=== PATIENT | female | born 1995 | race Caucasian/White ===

== ENCOUNTER 2017-12-29 15:31 | Emergency (ER) | payer BC, OTHER ==
[~2017-12-29] VITALS: Ht 149.9 cm; Wt 47.6 kg
[~2017-12-29 15:31] MED LIST: Amoxicillin500 MG PO; Bactrim Ds Tab1 EACH PO; HYOS.125 SL; IBUP800 PO; Macrodantin100 MG PO; Norco 5-325 Ta1 EACH PO; Zofran Odt4 MG SL
[2017-12-29 16:25] LABS: Calcium, Ionized (POC) 1.19 mmol/L (1.10-1.46); Chloride (POC) 102 mmol/L (98-108); Creatinine (POC) 0.7 mg/dL (0.6-1.0); Glucose (ISTAT POC) 82 mg/dL (70-99); Hemoglobin (POC) 11.9 g/dL (12.0-16.0); Potassium (POC) 4.2 mmol/L (3.5-5.5); Sodium (POC) 139 mmol/L (135-148); Total CO2 (POC) 27 mmol/L (21-32)
[2017-12-29] MEDS ORDERED: Zofran Odt4 MG SL (16:44)
[2018-08-10] MEDS ORDERED: Zofran Odt4 MG PO (23:35)
== END 2017-12-29 17:56 | disposition home or self-care (01) ==
LOC: ER 15:31
PROVIDERS: Physician Assistant
DX: R11.2 Nausea with vomiting, unspecified (principal)
CPT/HCPCS: 36415; 80047; 81000; 81025; 85014; 96361; 96374; 99283; J2405; J7030

== ENCOUNTER → 2018-06-28 | Outpatient (CLI) | payer BC, OTHER ==
[2018-06-30 02:13] LABS: CHLAMYDIA TRACHOMATIS, NAA Negative (Negative); NEISSERIA GONORRHOEAE, NAA Negative (Negative)
== END | disposition home or self-care (01) ==
LOC: LAB 09:31 → LAB SHORT 09:31
PROVIDERS: Obstetrics & Gynecology
DX: Z01.419 Encounter for gynecological examination (general) (routine) without abnormal findings (principal); Z11.3 Encounter for screening for infections with a predominantly sexual mode of transmission
CPT/HCPCS: 87491; 87591; G0123

== ENCOUNTER 2018-11-29 11:30 | Inpatient (IN) | payer OTHER, BC ==
[~2018-11-29] VITALS: Ht 149.9 cm; Wt 44.4 kg
[~2018-11-29 11:30] MED LIST changes: -IBUP400 PO; -OMEPRAZOLE MAGN20 MG PO
[2018-11-29 12:34] LABS: BASOPHILS ABSOLUTE AUTO 0.02 K/mm3 (0.00-0.23); BASOPHILS PERCENT AUTO 0 % (0-2); EOSINOPHILS ABSOLUTE AUTO 0.04 K/mm3 (0.00-0.68); EOSINOPHILS PERCENT AUTO 0 % (0-6); Hematocrit 36.3 % (33.0-51.0); Hemoglobin 12.5 g/dL (11.5-16.0); IMMATURE GRAN PERCENT AUTO 1 % (0-1); LYMPHOCYTES ABSOLUTE AUTO 1.14 K/mm3 (0.84-5.20); LYMPHOCYTES PERCENT AUTO 7 % (21-46); MONOCYTES ABSOLUTE AUTO 0.93 K/mm3 (0.16-1.47); MONOCYTES PERCENT AUTO 5 % (4-13); Mean Corpuscular HGB 31.5 pg (26.0-34.0); Mean Corpuscular HGB Conc 34.4 g/dL (31.5-36.5); Mean Corpuscular Volume 91 fL (80-100); Mean Platelet Volume 9.1 fL (9.1-12.4); NEUTROPHILS ABSOLUTE AUTO 15.38 K/mm3 (1.96-9.15); NEUTROPHILS PERCENT AUTO 87 % (41-73); Platelet Count 236 K/mm3 (150-400); RDW Coefficient Variation 11.8 % (11.7-14.2); RDW Standard Deviation 39.8 fL (35.1-46.3); Red Blood Cell Count 3.97 M/mm3 (3.80-5.20); White Blood Cell Count 17.61 K/mm3 (4.00-11.30)
[2018-11-29 12:57] LABS: Alanine Aminotransfer (ALT/SGP 19 U/L (12-78); Albumin, Blood 4.1 g/dL (3.4-5.0); Albumin/Globulin Ratio 1.1 (0.8-1.8); Alk Phos 55 U/L (50-136); Anion Gap 7 mmol/L (6-16); Aspartate Aminotrans (AST/SGOT 16 U/L (12-37); Bilirubin, Total 0.4 mg/dL (0.1-1.0); Blood Urea Nitrogen 11 mg/dL (8-24); Bun/Creatinine Ratio 14.6 (12.0-20.0); CO2, Blood 28 mmol/L (21-32); Calcium, Blood 8.6 mg/dL (8.5-10.1); Chloride, Blood 105 mmol/L (98-108); Creatinine, Blood 0.76 mg/dL (0.40-1.00); Globulin, Blood 3.7 g/dL (2.2-4.0); Glomerular Filtration Rate >60 (60-); Glucose, Blood 103 mg/dL (70-99); Potassium, Blood 3.5 mmol/L (3.5-5.5); Sodium, Blood 140 mmol/L (136-145); Total Protein, Blood 7.8 g/dL (6.4-8.2)
--- NOTE | 2018-11-29 19:37 | NUR ---
SHIFT SUMMARY PT A&OX4, VSS. DENIES PAIN. DENIES N&V, [place] PO. AMB INDEPENDENTLY IN ROOM. DR. DA SILVA CONSULTED PT. PLAN IS FOR NPO AT MIDNIGHT, POSS PROCEDURE TOMORROW, PT TO SHOWER, GAUZE & TEGADERM DRESSING TO BE APPLIED. REPORT PROVIDED TO NARINDER STEVENS.
[2018-11-29 20:10] LABS: Source, Urine Clean Catch
[2018-11-29 20:20] LABS: Appearance, Urine Clear (Clear); Bilirubin, Urine Neg (Neg); Blood, Urine 2+ (Neg); Color, Urine Yellow (P-Yellow); Glucose Qualitative, Urine Neg (Neg); Ketones, Urine 3+ (Neg); Leukocyte Esterase, Urine Neg (Neg); Nitrite, Urine Neg (Neg); Protein, Urine 1+ (Neg); Urobilinogen, Urine NORM (Normal); pH, Urine 6.5 (5.0-8.0)
[2018-11-29 20:42] LABS: Bacteria Not Seen /hpf; Red Blood Cells, Urine 0-2 /hpf (0-2); Squamous Epithelial Cells Not Seen /hpf (Few); White Blood Cells, Urine Not Seen /hpf (0-5)
--- NOTE | 2018-11-29 22:48 | NUR ---
TRANSFERED CARE TO NEXT RN. PT SHOWERED AND WASHED WITH CHLORHEXADINE. NEW DRESSING APPLIED. HR IS IN THE 90'S NSR PER REGRINDER. PT DENIES PAIN AT THIS TIME.
--- NOTE | 2018-11-29 23:47 | NUR ---
ASSUMED CARE OF PT. PT DID VOMIT, MEDICATED WITH ZOFRAN. PAIN IS MINIMAL. DRESSING IN PLACE. IVF AND IV ABX STARTED. PT EDUCATED RE NPO AFTER MIDNIGHT. CALL LIGHT IN REACH.
[2018-11-30 05:53] LABS: BASOPHILS ABSOLUTE AUTO 0.02 K/mm3 (0.00-0.23); BASOPHILS PERCENT AUTO 0 % (0-2); EOSINOPHILS ABSOLUTE AUTO 0.02 K/mm3 (0.00-0.68); EOSINOPHILS PERCENT AUTO 0 % (0-6); Hematocrit 33.6 % (33.0-51.0); Hemoglobin 11.2 g/dL (11.5-16.0); IMMATURE GRAN ABSOLUTE AUTO 0.04 K/mm3 (0.00-0.10); IMMATURE GRAN PERCENT AUTO 0 % (0-1); LYMPHOCYTES PERCENT AUTO 13 % (21-46); MONOCYTES ABSOLUTE AUTO 0.78 K/mm3 (0.16-1.47); MONOCYTES PERCENT AUTO 8 % (4-13); Mean Corpuscular HGB 30.9 pg (26.0-34.0); Mean Corpuscular HGB Conc 33.3 g/dL (31.5-36.5); Mean Corpuscular Volume 93 fL (80-100); Mean Platelet Volume 9.4 fL (9.1-12.4); NEUTROPHILS PERCENT AUTO 79 % (41-73); Platelet Count 200 K/mm3 (150-400); RDW Coefficient Variation 11.9 % (11.7-14.2); RDW Standard Deviation 40.8 fL (35.1-46.3); Red Blood Cell Count 3.63 M/mm3 (3.80-5.20); White Blood Cell Count 10.36 K/mm3 (4.00-11.30)
--- NOTE | 2018-11-30 06:02 | NUR ---
DID WELL DURING NIGHT. PLAN TO GO TO OR TODAY FOR I&D TO [place]. PT HAS BEEN NAUSEATED DURING NIGHT WITH ONE EPISODE OF EMISIS. POSSIBLY RELATED TO IV ABX. DRESSING REMAINS IN PLACE WAS REINFORCED ONCE THIS SHIFT. CALL LIGHT IN REACH.
[2018-11-30 06:12] LABS: Anion Gap 9 mmol/L (6-16); Blood Urea Nitrogen 8 mg/dL (8-24); Bun/Creatinine Ratio 10.9 (12.0-20.0); CO2, Blood 25 mmol/L (21-32); Chloride, Blood 109 mmol/L (98-108); Creatinine, Blood 0.74 mg/dL (0.40-1.00); Glomerular Filtration Rate >60 (60-); Glucose, Blood 89 mg/dL (70-99); Potassium, Blood 3.5 mmol/L (3.5-5.5); Sodium, Blood 143 mmol/L (136-145)
--- NOTE | 2018-11-30 19:00 | NUR ---
TP. LYING QUIETLY. EATING CL MEALS AND TOLERATING WELL. PT. TO BE NPO AFTER MIDNIGHT TONIGHT. PT. HAS REFUSED PAIN MEDS THIS SHIFT. PT. ABCESS IN GLUTEAL FOLD HAVING SLIGHT DRAINAGE OF SS FLUID. NEW DRESSING PLACED ON AREA. NO OTHER NOTEABLE CHANGES THIS SHIFT.
[2018-12-01 05:03] LABS: BASOPHILS ABSOLUTE AUTO 0.02 K/mm3 (0.00-0.23); BASOPHILS PERCENT AUTO 0 % (0-2); EOSINOPHILS ABSOLUTE AUTO 0.07 K/mm3 (0.00-0.68); EOSINOPHILS PERCENT AUTO 1 % (0-6); Hematocrit 29.6 % (33.0-51.0); IMMATURE GRAN ABSOLUTE AUTO 0.01 K/mm3 (0.00-0.10); IMMATURE GRAN PERCENT AUTO 0 % (0-1); LYMPHOCYTES ABSOLUTE AUTO 1.72 K/mm3 (0.84-5.20); LYMPHOCYTES PERCENT AUTO 32 % (21-46); MONOCYTES ABSOLUTE AUTO 0.54 K/mm3 (0.16-1.47); MONOCYTES PERCENT AUTO 10 % (4-13); Mean Corpuscular HGB 31.2 pg (26.0-34.0); Mean Corpuscular HGB Conc 33.8 g/dL (31.5-36.5); Mean Corpuscular Volume 92 fL (80-100); Mean Platelet Volume 9.2 fL (9.1-12.4); NEUTROPHILS ABSOLUTE AUTO 3.06 K/mm3 (1.96-9.15); NEUTROPHILS PERCENT AUTO 56 % (41-73); Platelet Count 170 K/mm3 (150-400); RDW Coefficient Variation 11.9 % (11.7-14.2); RDW Standard Deviation 40.4 fL (35.1-46.3); Red Blood Cell Count 3.21 M/mm3 (3.80-5.20); White Blood Cell Count 5.42 K/mm3 (4.00-11.30)
--- NOTE | 2018-12-01 05:14 | NUR ---
PT VSS T/O NIGHT; HR SINUS PER TELE MONITOR. DRESSING INTACT W/SM AMT SS SHADOWING. PT MED FOR PAIN X1 W/REP RELIEF, REP LESS PRESSURE TO AREA. PT DENIED N/V, IS VOIDING URINE W/O DIFFICULTY. IVF AND ABX CONT PER ORDERS. PT NPO POST MIDNIGHT FOR POSS OR TODAY. PT AMB INDEP IN ROOM, DENIED DIZZINESS WHEN UP, IS USING CALL LIGHT FOR ASSISTANCE, WILL CONT TO MONITOR UNTIL REP GIVEN TO ONCOMING RN.
--- NOTE | 2018-12-01 08:24 | NUR ---
NOTIFIED DR. CUNNINGHAM THAT DR. DA SILVA REPORTS PT WILL LIKELY D/C TODAY. DR. CUNNINGHAM SAID OK TO ORDER REGULAR ADULT DIET. NO OTHER NEW ORDERS AT THIS TIME.
--- NOTE | 2018-12-01 10:06 | NUR ---
NOTIFIED DR. CUNNINGHAM PT C/O GAS PAIN AND REQUESTING GAS X. DR. CUNNINGHAM SAID TO ORDER 1 TAB GAS X PO Q8PRN. NO OTHER NEW ORDERS AT THIS TIME.
[2018-12-01] MEDS ORDERED: IBUP400 PO ×2 (10:41)
[2018-12-01] MEDS ORDERED: Bactrim Ds Tab1 EACH PO ×2 (10:42)
[2018-12-01] MEDS ORDERED: OMEPRAZOLE MAGN20 MG PO ×2 (10:42)
--- NOTE | 2018-12-01 13:03 | NUR ---
D/C INSTRUCTIONS PROVIDED AND EXPLAINED. IV AND TELE REMOVED. PT D/C VIA AMBULATION WITH FRIEND AT 1255.
== END 2018-12-01 13:02 | disposition home or self-care (01) | DRG 872 ==
LOC: ER 11:30 → SURS 16:50
PROVIDERS: Nurse Practitioner Acute Care; Physician Assistant; Surgery; ADMIT Family Medicine
DX: A41.02 Sepsis due to Methicillin resistant Staphylococcus aureus (principal); L03.317 Cellulitis of buttock; L03.314 Cellulitis of groin; D64.9 Anemia, unspecified
CPT/HCPCS: 36415; 74177; 80048; 80053; 81001; 81025; 82550; 83605; 85025; 87040; 93005; 93010; 96361; 96365; 96375; 99285-25; J0295; J1885; J2405; J3370; J7030; J7120; Q9967

== ENCOUNTER → 2018-11-29 | Outpatient (CLI) | payer BC, OTHER ==
[~2018-11-29] MED LIST changes: +IBUP400 PO; +OMEPRAZOLE MAGN20 MG PO; +Zofran Odt4 MG PO
== END | disposition home or self-care (01) ==
LOC: LAB 10:50 → LAB SHORT 10:50
DX: N76.4 Abscess of vulva (principal)
CPT/HCPCS: 87070; 87075; 87077; 87147; 87186; 87205

== ENCOUNTER 2020-01-21 13:38 | Emergency (ER) | payer OTHER ==
[~2020-01-21] VITALS: Ht 149.9 cm; Wt 45.4 kg
[~2020-01-21 13:38] MED LIST changes: +IBUP400 PO; +OMEPRAZOLE MAGN20 MG PO
[2020-01-21 14:07] LABS: BASOPHILS ABSOLUTE AUTO 0.01 K/mm3 (0.00-0.23); BASOPHILS PERCENT AUTO 0 % (0-2); EOSINOPHILS PERCENT AUTO 0 % (0-6); Hematocrit 37.6 % (33.0-51.0); Hemoglobin 13.3 g/dL (11.5-16.0); IMMATURE GRAN ABSOLUTE AUTO 0.02 K/mm3 (0.00-0.10); IMMATURE GRAN PERCENT AUTO 0 % (0-1); LYMPHOCYTES ABSOLUTE AUTO 0.71 K/mm3 (0.84-5.20); LYMPHOCYTES PERCENT AUTO 7 % (21-46); MONOCYTES PERCENT AUTO 2 % (4-13); Mean Corpuscular HGB Conc 35.4 g/dL (31.5-36.5); Mean Corpuscular Volume 88 fL (80-100); Mean Platelet Volume 9.2 fL (9.1-12.4); NEUTROPHILS ABSOLUTE AUTO 9.88 K/mm3 (1.96-9.15); NEUTROPHILS PERCENT AUTO 91 % (41-73); Platelet Count 239 K/mm3 (150-400); RDW Coefficient Variation 11.6 % (11.7-14.2); RDW Standard Deviation 37.2 fL (35.1-46.3); Red Blood Cell Count 4.29 M/mm3 (3.80-5.20); White Blood Cell Count 10.82 K/mm3 (4.00-11.30)
[2020-01-21 14:28] LABS: Alanine Aminotransfer (ALT/SGP 36 U/L (12-78); Albumin, Blood 4.7 g/dL (3.4-5.0); Albumin/Globulin Ratio 1.6 (0.8-1.8); Alk Phos 44 U/L (50-136); Anion Gap 9 mmol/L (6-16); Aspartate Aminotrans (AST/SGOT 30 U/L (12-37); Bilirubin, Total 0.5 mg/dL (0.1-1.0); Blood Urea Nitrogen 14 mg/dL (8-24); Bun/Creatinine Ratio 20.1 (12.0-20.0); CO2, Blood 24 mmol/L (21-32); Calcium, Blood 9.6 mg/dL (8.5-10.1); Chloride, Blood 107 mmol/L (98-108); Glomerular Filtration Rate >60 (60-); Glucose, Blood 125 mg/dL (70-99); Potassium, Blood 3.7 mmol/L (3.5-5.5); Sodium, Blood 140 mmol/L (136-145); Total Protein, Blood 7.7 g/dL (6.4-8.2)
[2020-01-21 14:29] LABS: Source, Urine Clean Catch
[2020-01-21 14:32] LABS: Bilirubin, Urine Neg (Neg); Blood, Urine Neg (Neg); Glucose Qualitative, Urine Neg (Neg); Ketones, Urine 4+ (Neg); Leukocyte Esterase, Urine Neg (Neg); Nitrite, Urine Neg (Neg); Protein, Urine 1+ (Neg); Urobilinogen, Urine NORM (Normal)
[2020-01-21 14:33] LABS: Color, Urine Yellow (P-Yellow)
[2020-01-21 14:34] LABS: Appearance, Urine Clear (Clear)
[2020-01-21] MEDS ORDERED: Ondansetron Odt8 MG MM (15:33)
== END 2020-01-21 15:51 | disposition home or self-care (01) ==
LOC: ER 13:38
PROVIDERS: Emergency Medicine
DX: R11.2 Nausea with vomiting, unspecified (principal); F12.10 Cannabis abuse, uncomplicated
CPT/HCPCS: 36415; 80053; 81025; 85025; 96361; 96374; 96375; 99283-25; J1200; J1630; J2405; J7030

== ENCOUNTER 2021-02-16 19:04 | Emergency (ER) | payer OTHER ==
[~2021-02-16] VITALS: Ht 149.9 cm; Wt 45.4 kg
[~2021-02-16 19:04] MED LIST changes: +MELATONIN3 M1 PO; +Ondansetron Odt8 MG MM
[2021-02-16 20:00] LABS: BASOPHILS ABSOLUTE AUTO 0.03 K/mm3 (0.00-0.23); BASOPHILS PERCENT AUTO 0 % (0-2); EOSINOPHILS ABSOLUTE AUTO 0.03 K/mm3 (0.00-0.68); EOSINOPHILS PERCENT AUTO 0 % (0-6); Hematocrit 34.8 % (33.0-51.0); Hemoglobin 12.1 g/dL (11.5-16.0); IMMATURE GRAN ABSOLUTE AUTO 0.02 K/mm3 (0.00-0.10); IMMATURE GRAN PERCENT AUTO 0 % (0-1); LYMPHOCYTES ABSOLUTE AUTO 1.96 K/mm3 (0.84-5.20); LYMPHOCYTES PERCENT AUTO 29 % (21-46); MONOCYTES PERCENT AUTO 9 % (4-13); Mean Corpuscular HGB 30.7 pg (26.0-34.0); Mean Corpuscular HGB Conc 34.8 g/dL (31.5-36.5); Mean Corpuscular Volume 88 fL (80-100); Mean Platelet Volume 9.1 fL (9.1-12.4); NEUTROPHILS ABSOLUTE AUTO 4.08 K/mm3 (1.96-9.15); NEUTROPHILS PERCENT AUTO 61 % (41-73); Platelet Count 236 K/mm3 (150-400); RDW Coefficient Variation 11.6 % (11.7-14.2); RDW Standard Deviation 37.5 fL (35.1-46.3); Red Blood Cell Count 3.94 M/mm3 (3.80-5.20); White Blood Cell Count 6.72 K/mm3 (4.00-11.30)
[2021-02-16 20:17] LABS: Anion Gap 3 mmol/L (6-16); Blood Urea Nitrogen 7 mg/dL (8-24); Bun/Creatinine Ratio 10.9 (12.0-20.0); CO2, Blood 27 mmol/L (21-32); Calcium, Blood 8.9 mg/dL (8.5-10.1); Chloride, Blood 105 mmol/L (98-108); Creatinine, Blood 0.64 mg/dL (0.40-1.00); Glomerular Filtration Rate >60 (60-); Glucose, Blood 88 mg/dL (70-99); Potassium, Blood 3.7 mmol/L (3.5-5.5); Sodium, Blood 135 mmol/L (136-145)
[2021-02-16 21:14] LABS: Source, Urine Clean Catch
[2021-02-16 21:17] LABS: Bilirubin, Urine Neg (Neg); Blood, Urine Neg (Neg); Glucose Qualitative, Urine Neg (Neg); Ketones, Urine Neg (Neg); Leukocyte Esterase, Urine 1+ (Neg); Nitrite, Urine Neg (Neg); Protein, Urine 1+ (Neg); Urobilinogen, Urine NORM (Normal)
[2021-02-16 21:25] LABS: Color, Urine Yellow (P-Yellow)
[2021-02-16 21:26] LABS: Appearance, Urine Clear (Clear); Bacteria Few /hpf; Mucus Light (0-Heavy); Red Blood Cells, Urine 0-2 /hpf (0-2); Squamous Epithelial Cells Few /hpf (Few)
== END 2021-02-16 23:30 | disposition home or self-care (01) ==
LOC: ER 19:04
PROVIDERS: Emergency Medicine
DX: O34.81 Maternal care for other abnormalities of pelvic organs, first trimester (principal); N83.201 Unspecified ovarian cyst, right side; Z3A.01 Less than 8 weeks gestation of pregnancy
CPT/HCPCS: 36415; 76801; 76817; 80048; 81001; 84703; 85025; 87086; 96374; 96375; 99284-25; J2405; J3010; J7030

== ENCOUNTER 2021-03-07 20:22 | Emergency (ER) | payer OTHER ==
[~2021-03-07] VITALS: Ht 149.9 cm; Wt 45.4 kg
[~2021-03-07 20:22] MED LIST changes: +DICLEGIS DR 101 EAC1 PO; +ONDA4 PO; +ONDA4ODT MM; +Zofran4 MG PO
[2021-03-07 21:33] LABS: BASOPHILS ABSOLUTE AUTO 0.02 K/mm3 (0.00-0.23); BASOPHILS PERCENT AUTO 0 % (0-2); EOSINOPHILS PERCENT AUTO 0 % (0-6); Hematocrit 34.7 % (33.0-51.0); Hemoglobin 12.6 g/dL (11.5-16.0); IMMATURE GRAN ABSOLUTE AUTO 0.04 K/mm3 (0.00-0.10); IMMATURE GRAN PERCENT AUTO 0 % (0-1); LYMPHOCYTES PERCENT AUTO 14 % (21-46); MONOCYTES ABSOLUTE AUTO 0.78 K/mm3 (0.16-1.47); MONOCYTES PERCENT AUTO 7 % (4-13); Mean Corpuscular HGB 31.8 pg (26.0-34.0); Mean Corpuscular HGB Conc 36.3 g/dL (31.5-36.5); Mean Corpuscular Volume 88 fL (80-100); Mean Platelet Volume 9.1 fL (9.1-12.4); NEUTROPHILS ABSOLUTE AUTO 8.25 K/mm3 (1.96-9.15); NEUTROPHILS PERCENT AUTO 78 % (41-73); Platelet Count 267 K/mm3 (150-400); RDW Coefficient Variation 11.9 % (11.7-14.2); RDW Standard Deviation 38.2 fL (35.1-46.3); Red Blood Cell Count 3.96 M/mm3 (3.80-5.20); White Blood Cell Count 10.59 K/mm3 (4.00-11.30)
[2021-03-07 21:51] LABS: Alanine Aminotransfer (ALT/SGP 19 U/L (12-78); Albumin, Blood 4.1 g/dL (3.4-5.0); Albumin/Globulin Ratio 1.3 (0.8-1.8); Alk Phos 35 U/L (50-136); Anion Gap 9 mmol/L (6-16); Aspartate Aminotrans (AST/SGOT 16 U/L (12-37); Bilirubin, Total 0.6 mg/dL (0.1-1.0); Blood Urea Nitrogen 10 mg/dL (8-24); Bun/Creatinine Ratio 15.8 (12.0-20.0); CO2, Blood 23 mmol/L (21-32); Calcium, Blood 9.4 mg/dL (8.5-10.1); Chloride, Blood 102 mmol/L (98-108); Creatinine, Blood 0.63 mg/dL (0.40-1.00); Globulin, Blood 3.2 g/dL (2.2-4.0); Glomerular Filtration Rate >60 (60-); Glucose, Blood 109 mg/dL (70-99); Potassium, Blood 3.5 mmol/L (3.5-5.5); Sodium, Blood 134 mmol/L (136-145); Total Protein, Blood 7.3 g/dL (6.4-8.2)
== END 2021-03-08 00:47 | disposition home or self-care (01) ==
LOC: ER 20:22
PROVIDERS: Physician Assistant
DX: O21.9 Vomiting of pregnancy, unspecified (principal); O99.321 Drug use complicating pregnancy, first trimester; F12.988 Cannabis use, unspecified with other cannabis-induced disorder; Z3A.09 9 weeks gestation of pregnancy
CPT/HCPCS: 36415; 76801; 80053; 83690; 83735; 85025; 96372-59; 96374; 99284-25; J1630; J2405; J7030

== ENCOUNTER 2021-03-15 08:22 | Day surgery (SDC) | payer OTHER | END 2021-03-15 11:50 | disposition home or self-care (01) | LOC: ATC 08:22 | DX: O21.1 Hyperemesis gravidarum with metabolic disturbance (principal); Z3A.00 Weeks of gestation of pregnancy not specified | CPT/HCPCS: 96361; 96365; 96375; J2405; J3411; J3475; J7042; J7121 ==

== ENCOUNTER 2021-03-18 03:41 | Day surgery (SDC) | payer OTHER ==
--- NOTE | 2021-03-18 15:49 | NUR ---
1450 IV PLACED TO RIGHT FOREARM. PT STATED SHE HAD PAIN AND ASKED IT TO BE REMOVED AND PLACED ELSWHERE. 1455 IV PLACED TO RIGHT AC. AFTER IV PALCED PT STATED SHE FELT DIZZY AND "COULDN'T SEE" AND THEN HAD A SYNCOPAL EPISODE THAT LASTED APPROX 30 SECONDS. 1500 BP 79/37. PT AWAKE. CLAMMY. 1503 BP 91/45 PT HAVING HAND CRAMPS. FINGERS LOCKED AND PT UNABLE TO BEND THEM. 1505 BP 115/71 CONTINUES TO HAVE HAND CRAMPS 1509 O2 SAT 100%, HR 69 1511 BP 105/67, PULSE 72. 1515 HAND CRAMPS IMPROVING. PT STATES THIS HAS BEEN HAPPENING TO HER. SPOKE WITH SYMONE JERNIGAN RN AT DR. MILLIGAN OFFICE. INFORMED OF SYNCOPAL EPISODE, BP AND HAND CRAMPING. ORDERS GIVEN TO DECREASE BANANA BAD TO ONCE AN WEEK, AND HOLD TODAYS SINCE SHE HAD A DOSE ON WEDNESDAY. AND PT TO GOT THE ED IF SHE HAS ANOTHER EPISODE.
--- NOTE | 2021-03-18 15:57 | NUR ---
PT GETTING INFUSION. STATES SHE FEELS OK.
== END 2021-03-18 16:27 | disposition home or self-care (01) ==
LOC: ATC 03:41
DX: O21.1 Hyperemesis gravidarum with metabolic disturbance (principal); Z3A.00 Weeks of gestation of pregnancy not specified
CPT/HCPCS: 96361; 96374; J2405; J3411; J3475; J7042; J7121

== ENCOUNTER 2021-03-22 13:32 | Day surgery (SDC) | payer OTHER | END 2021-03-22 15:49 | disposition home or self-care (01) | LOC: ATC 13:32 | DX: O21.1 Hyperemesis gravidarum with metabolic disturbance (principal); Z3A.00 Weeks of gestation of pregnancy not specified | CPT/HCPCS: 96361; 96365; J2405; J3411; J3475; J7042; J7121 ==

== ENCOUNTER 2021-03-29 03:56 | Day surgery (SDC) | payer OTHER | END 2021-03-29 22:36 | disposition home or self-care (01) | LOC: ATC 03:56 | DX: O21.1 Hyperemesis gravidarum with metabolic disturbance (principal); O99.330 Smoking (tobacco) complicating pregnancy, unspecified trimester | CPT/HCPCS: J2405; J3411; J3475; J7042; J7121 ==

== ENCOUNTER 2021-04-04 04:48 | Day surgery (SDC) | payer OTHER | END 2021-04-04 13:24 | disposition home or self-care (01) | LOC: ATC 04:48 | DX: O21.1 Hyperemesis gravidarum with metabolic disturbance (principal); O99.330 Smoking (tobacco) complicating pregnancy, unspecified trimester; F17.200 Nicotine dependence, unspecified, uncomplicated; Z3A.00 Weeks of gestation of pregnancy not specified | CPT/HCPCS: 96360; 96361; 96375; J2405; J3411; J3475; J7042; J7121 ==

== ENCOUNTER 2021-04-29 11:30 | Day surgery (SDC) | payer OTHER ==
--- NOTE | 2021-04-29 15:45 | NUR ---
DR SERRANO'S OFFICE CALLED TO INFORM DR SERRANO THAT THERE IS A NATIONAL SHORTAGE ON MULTIVITAMIN COMPONENT IN THE BANANA BAG. DR SERRANO UNAVAILABLE. MESSAGE LEFT WITH AMADEO.
[2021-04-30] MEDS ORDERED: ONDA4ODT MM (20:38)
== END 2021-04-29 17:37 | disposition home or self-care (01) ==
LOC: ATC 11:30
DX: O21.0 Mild hyperemesis gravidarum (principal); Z3A.00 Weeks of gestation of pregnancy not specified
CPT/HCPCS: 96365; 96375; J2405; J3411; J3475; J7042

== ENCOUNTER 2021-04-30 14:05 | Emergency (ER) | payer OTHER ==
[~2021-04-30] VITALS: Ht 152.4 cm; Wt 45.4 kg
[2021-04-30 14:53] LABS: BASOPHILS ABSOLUTE AUTO 0.01 K/mm3 (0.00-0.23); BASOPHILS PERCENT AUTO 0 % (0-2); EOSINOPHILS PERCENT AUTO 0 % (0-6); Hemoglobin 13.4 g/dL (11.5-16.0); IMMATURE GRAN ABSOLUTE AUTO 0.07 K/mm3 (0.00-0.10); IMMATURE GRAN PERCENT AUTO 1 % (0-1); LYMPHOCYTES ABSOLUTE AUTO 1.29 K/mm3 (0.84-5.20); LYMPHOCYTES PERCENT AUTO 10 % (21-46); MONOCYTES ABSOLUTE AUTO 0.74 K/mm3 (0.16-1.47); MONOCYTES PERCENT AUTO 6 % (4-13); Mean Corpuscular HGB 31.8 pg (26.0-34.0); Mean Corpuscular HGB Conc 36.2 g/dL (31.5-36.5); Mean Corpuscular Volume 88 fL (80-100); Mean Platelet Volume 9.1 fL (9.1-12.4); NEUTROPHILS ABSOLUTE AUTO 10.74 K/mm3 (1.96-9.15); NEUTROPHILS PERCENT AUTO 84 % (41-73); Platelet Count 355 K/mm3 (150-400); RDW Coefficient Variation 12.2 % (11.7-14.2); RDW Standard Deviation 38.8 fL (35.1-46.3); Red Blood Cell Count 4.21 M/mm3 (3.80-5.20); White Blood Cell Count 12.85 K/mm3 (4.00-11.30)
[2021-04-30 15:18] LABS: Alanine Aminotransfer (ALT/SGP 20 U/L (12-78); Albumin, Blood 3.9 g/dL (3.4-5.0); Alk Phos 43 U/L (50-136); Anion Gap 9 mmol/L (6-16); Aspartate Aminotrans (AST/SGOT 14 U/L (12-37); Bilirubin, Total 0.5 mg/dL (0.1-1.0); Blood Urea Nitrogen 12 mg/dL (8-24); Bun/Creatinine Ratio 20.5 (12.0-20.0); CO2, Blood 27 mmol/L (21-32); Calcium, Blood 9.7 mg/dL (8.5-10.1); Chloride, Blood 99 mmol/L (98-108); Creatinine, Blood 0.59 mg/dL (0.40-1.00); Globulin, Blood 3.9 g/dL (2.2-4.0); Glomerular Filtration Rate >60 (60-); Glucose, Blood 107 mg/dL (70-99); Sodium, Blood 135 mmol/L (136-145); Total Protein, Blood 7.8 g/dL (6.4-8.2)
[2021-04-30 19:58] LABS: Source, Urine Clean Catch
[2021-04-30 20:01] LABS: Bilirubin, Urine Neg (Neg); Blood, Urine Neg (Neg); Glucose Qualitative, Urine Neg (Neg); Ketones, Urine 4+ (Neg); Leukocyte Esterase, Urine 1+ (Neg); Nitrite, Urine Neg (Neg); Protein, Urine 2+ (Neg); Urobilinogen, Urine 1+ (Normal)
[2021-04-30 20:15] LABS: Appearance, Urine Hazy (Clear); Color, Urine Yellow (P-Yellow)
[2021-04-30 20:18] LABS: Mucus Mod (0-Heavy)
[2021-04-30 20:19] LABS: Bacteria Few /hpf; Red Blood Cells, Urine 0-2 /hpf (0-2); Squamous Epithelial Cells Few /hpf (Few)
[2021-04-30] MEDS ORDERED: ONDA4ODT MM (20:38)
== END 2021-04-30 20:47 | disposition home or self-care (01) ==
LOC: ER 14:05
PROVIDERS: Physician Assistant
DX: O21.9 Vomiting of pregnancy, unspecified (principal); O99.891 Other specified diseases and conditions complicating pregnancy; R10.9 Unspecified abdominal pain; Z3A.17 17 weeks gestation of pregnancy; Z79.899 Other long term (current) drug therapy
CPT/HCPCS: 36415; 76815; 76817; 80053; 81001; 83690; 84702; 85025; 86900; 86901; 87086; 96374; 96375; 99284-25; A9270; J2405; J2765

== ENCOUNTER 2021-05-23 02:23 | Day surgery (SDC) | payer OTHER | END 2021-05-23 09:58 | disposition home or self-care (01) | LOC: ATC 02:23 | DX: O21.0 Mild hyperemesis gravidarum (principal); Z3A.00 Weeks of gestation of pregnancy not specified | CPT/HCPCS: 96361; 96365; 96375; J2405; J3411; J3475; J7042; J7120 ==

== ENCOUNTER 2021-06-13 04:04 | Emergency (ER) | payer OTHER ==
[~2021-06-13] VITALS: Ht 149.9 cm; Wt 50.4 kg
[2021-06-13 05:20] LABS: BASOPHILS ABSOLUTE AUTO 0.01 K/mm3 (0.00-0.23); BASOPHILS PERCENT AUTO 0 % (0-2); EOSINOPHILS PERCENT AUTO 0 % (0-6); Hematocrit 33.4 % (33.0-51.0); Hemoglobin 11.6 g/dL (11.5-16.0); IMMATURE GRAN PERCENT AUTO 1 % (0-1); LYMPHOCYTES PERCENT AUTO 8 % (21-46); MONOCYTES ABSOLUTE AUTO 1.28 K/mm3 (0.16-1.47); MONOCYTES PERCENT AUTO 10 % (4-13); Mean Corpuscular HGB Conc 34.7 g/dL (31.5-36.5); Mean Corpuscular Volume 92 fL (80-100); Mean Platelet Volume 9.2 fL (9.1-12.4); NEUTROPHILS ABSOLUTE AUTO 10.73 K/mm3 (1.96-9.15); NEUTROPHILS PERCENT AUTO 81 % (41-73); Platelet Count 358 K/mm3 (150-400); RDW Standard Deviation 40.4 fL (35.1-46.3); Red Blood Cell Count 3.63 M/mm3 (3.80-5.20); White Blood Cell Count 13.22 K/mm3 (4.00-11.30)
[2021-06-13 05:33] LABS: Alanine Aminotransfer (ALT/SGP 22 U/L (12-78); Albumin, Blood 3.5 g/dL (3.4-5.0); Albumin/Globulin Ratio 0.9 (0.8-1.8); Alk Phos 52 U/L (50-136); Anion Gap 9 mmol/L (6-16); Aspartate Aminotrans (AST/SGOT 19 U/L (12-37); Bilirubin, Total 0.6 mg/dL (0.1-1.0); Blood Urea Nitrogen 8 mg/dL (8-24); Bun/Creatinine Ratio 12.9 (12.0-20.0); CO2, Blood 27 mmol/L (21-32); Calcium, Blood 9.6 mg/dL (8.5-10.1); Chloride, Blood 101 mmol/L (98-108); Creatinine, Blood 0.62 mg/dL (0.40-1.00); Glomerular Filtration Rate >60 (60-); Glucose, Blood 112 mg/dL (70-99); Potassium, Blood 2.9 mmol/L (3.5-5.5); Sodium, Blood 137 mmol/L (136-145); Total Protein, Blood 7.5 g/dL (6.4-8.2)
[2021-06-13 06:21] LABS: Magnesium, Blood 1.9 mg/dL (1.6-2.4)
[2021-06-13 09:08] LABS: Source, Urine Clean Catch
[2021-06-13 09:13] LABS: Appearance, Urine Hazy (Clear); Bilirubin, Urine Neg (Neg); Blood, Urine Neg (Neg); Color, Urine Yellow (P-Yellow); Glucose Qualitative, Urine 2+ (Neg); Ketones, Urine 4+ (Neg); Leukocyte Esterase, Urine Neg (Neg); Nitrite, Urine Neg (Neg); Protein, Urine 2+ (Neg); Specific Gravity, Urine 1.025 (1.003-1.022); Urobilinogen, Urine NORM (Normal)
[2021-06-13 09:25] LABS: Bacteria Few /hpf; Red Blood Cells, Urine 0-2 /hpf (0-2); Squamous Epithelial Cells Mod /hpf (Few)
[2021-06-13 09:26] LABS: Mucus Heavy (0-Heavy)
[2021-06-13] MEDS ORDERED: PROM25 PO (11:21)
== END 2021-06-13 11:30 | disposition home or self-care (01) ==
LOC: ER 04:04
PROVIDERS: Student in an Organized Health Care Education/Training Program
DX: O21.1 Hyperemesis gravidarum with metabolic disturbance (principal); E86.0 Dehydration; Z3A.23 23 weeks gestation of pregnancy
CPT/HCPCS: 36415; 76705; 80053; 81001; 83690; 83735; 85025; 99284-25; C9113; J2405; J2550; J3480; J7030

== ENCOUNTER 2021-07-16 15:50 | Day surgery (SDC) | payer OTHER ==
[~2021-07-16 15:50] MED LIST changes: +PROM25 PO
== END 2021-07-16 17:32 | disposition home or self-care (01) ==
LOC: ATC 15:50
DX: O21.1 Hyperemesis gravidarum with metabolic disturbance (principal); O99.320 Drug use complicating pregnancy, unspecified trimester; Z3A.00 Weeks of gestation of pregnancy not specified
CPT/HCPCS: J2405

== ENCOUNTER 2021-10-14 19:31 | Inpatient (IN) | payer OTHER ==
[~2021-10-14] VITALS: Ht 149.9 cm; Wt 58.6 kg
[2021-10-15 02:53] LABS: Influenza A, PCR NEGATIVE (NEGATIVE); Influenza B, PCR NEGATIVE (NEGATIVE); Resp Syncytial Virus, PCR NEGATIVE (NEGATIVE); SARS-Cov-2 (COVID-19) PCR, MMC NEGATIVE (NEGATIVE)
[2021-10-15] MEDS ORDERED: PRENATAL TABLE1 EAC2 PO (03:56)
[2021-10-15 06:07] LABS: Hematocrit 37.5 % (33.0-51.0); Hemoglobin 13.2 g/dL (11.5-16.0); Mean Corpuscular HGB 32.1 pg (26.0-34.0); Mean Corpuscular HGB Conc 35.2 g/dL (31.5-36.5); Mean Corpuscular Volume 91 fL (80-100); Mean Platelet Volume 9.7 fL (9.1-12.4); Platelet Count 244 K/mm3 (150-400); RDW Coefficient Variation 13.2 % (11.7-14.2); RDW Standard Deviation 43.8 fL (35.1-46.3); Red Blood Cell Count 4.11 M/mm3 (3.80-5.20); White Blood Cell Count 18.22 K/mm3 (4.00-11.30)
--- NOTE | 2021-10-16 09:45 | NUR ---
DISCHARGED TO HOME WITH INFANT. BANDS MATCHED.
== END 2021-10-16 10:00 | disposition home or self-care (01) | DRG 807 ==
LOC: OBS 19:31 → BC 19:31 → OBS 23:00 → BC 23:01
PROVIDERS: Registered Nurse Community Health; ADMIT Obstetrics & Gynecology
PROC: 10E0XZZ Delivery of Products of Conception, External Approach (ICD-10-PCS; principal; 2021-10-15)
PROC: 0HQ9XZZ Repair Perineum Skin, External Approach (ICD-10-PCS; 2021-10-15)
PROC: 3E0234Z Introduction of Serum, Toxoid and Vaccine into Muscle, Percutaneous Approach (ICD-10-PCS; 2021-10-15)
DX: O48.0 Post-term pregnancy (principal); Z37.0 Single live birth; Z20.822 Contact with and (suspected) exposure to COVID-19; O26.893 Other specified pregnancy related conditions, third trimester; Z67.41 Type O blood, Rh negative; Z3A.40 40 weeks gestation of pregnancy; O70.0 First degree perineal laceration during delivery
CPT/HCPCS: 0241U; 36415; 59025; 85027; 85460; 96372; A9270; J2210; J2270; J2550; J2590; J2791; J7120

== ENCOUNTER → 2022-07-28 | Outpatient (CLI) | payer OTHER ==
[~2022-07-28] MED LIST changes: +PRENATAL TABLE1 EAC2 PO
== END | disposition home or self-care (01) ==
LOC: LAB SHORT 16:10 → LAB 16:10
DX: Z01.812 Encounter for preprocedural laboratory examination (principal); Z86.14 Personal history of Methicillin resistant Staphylococcus aureus infection
CPT/HCPCS: 87081

== ENCOUNTER 2022-08-06 08:58 | Day surgery (SDC) | payer OTHER ==
[~2022-08-06] VITALS: Ht 149.9 cm; Wt 42.9 kg
[2022-08-06] MEDS ORDERED: SERTRALINE HCL50 MG (09:54)
--- NOTE | 2022-08-06 11:04 | NUR ---
08/06/22 1104 Maura Stevens ORSC.JAR LOWER PREP ORSC.DXH UPPER PREP
--- NOTE | 2022-08-06 12:46 | NUR ---
08/06/22 1246 KATE MONTOYA PT NOTED PAIN 3/10 PRIOR TO GETTING INTO RECLINER. THEN PAIN 6-8/10. RECLINED CHAIR BACK AND SHE STATES THAT PAIN IS BETER. FIANCE AND TODDLER IN ROOM WITH HER.
== END 2022-08-06 13:30 | disposition home or self-care (01) ==
LOC: ORSCSDS 08:58
PROVIDERS: Obstetrics & Gynecology
PROC: 0UB74ZZ Excision of Bilateral Fallopian Tubes, Percutaneous Endoscopic Approach (ICD-10-PCS; principal; 2022-08-06 10:15)
DX: Z30.2 Encounter for sterilization (principal)
CPT/HCPCS: 88302; A9270; J0171; J0690; J2250; J2704; J2795; J3010; J7120